=== PATIENT | male | born 1975 | race Caucasian/White ===

== ENCOUNTER 2021-05-28 19:10 | Emergency (ER) | payer OTHER | END 2021-05-28 21:30 | disposition home or self-care (01) | LOC: MADERS 19:10 | DX: S01.01XA Laceration without foreign body of scalp, initial encounter (principal); F07.81 Postconcussional syndrome; I10 Essential (primary) hypertension; F17.220 Nicotine dependence, chewing tobacco, uncomplicated; W22.09XA Striking against other stationary object, initial encounter; Y92.69 Other specified industrial and construction area as the place of occurrence of the external cause | CPT/HCPCS: 12002; 70450 ==

== ENCOUNTER 2021-12-25 14:50 | Outpatient (CLI) | payer OTHER | END 2021-12-25 14:51 | disposition home or self-care (01) | LOC: MADRAD 14:50 | PROVIDERS: ATTEND Family Medicine | DX: M25.562 Pain in left knee (principal); S89.92XD Unspecified injury of left lower leg, subsequent encounter ==